=== PATIENT | male | born 1975 | race Two or more races ===

== ENCOUNTER 2025-03-02 06:35 | Day surgery (SDC) | payer MEDICAID, SELFPAY ==
[2025-02-27 15:10] VITALS: BMI 36.2
[2025-03-02] VITALS (9 sets, daily range): BP systolic 118–144; BP diastolic 81–100; PULSE 52–71; RESP 12–25; TEMP 36.2–36.3; O2SAT 96–99; BMI 36.1
[2025-03-02] MEDS: SODIUM CHLORIDE 0.9% 500 ML 500 ML 125 ML IV (07:40)
[2025-03-02] MEDS: MIDAZOLAM INJ 1 MG/ML VIAL 2 ML (ASD USE ONLY) 2 MG IVP (07:45)
[2025-03-02] MEDS: fentaNYL CIT INJ 50 mCg/ML AMP 2ML (ASD USE ONLY) IVP (07:45)
== END 2025-03-02 08:45 | disposition home or self-care (01) ==
PROVIDERS: PCP Family Medicine; Referring Provider Surgery; Visit Provider Surgery
PROC: 0DBE8ZX Excision of Large Intestine, Via Natural or Artificial Opening Endoscopic, Diagnostic (ICD-10-PCS; CPT 45380; principal; 2025-03-02 07:30)
DX: Z12.11 Encounter for screening for malignant neoplasm of colon (principal); D12.5 Benign neoplasm of sigmoid colon; K57.30 Diverticulosis of large intestine without perforation or abscess without bleeding; E11.9 Type 2 diabetes mellitus without complications; Z79.84 Long term (current) use of oral hypoglycemic drugs
CPT/HCPCS: 45385; A4649; J1200; J2250; J3010; J7999